=== PATIENT | male | born 1995 | race Caucasian/White ===

== ENCOUNTER 2019-11-13 11:38 | Emergency (ER) | payer BC, SELFPAY ==
[2019-11-13 11:48] VITALS: BP 135/87; PULSE 95; RESP 16; TEMP 36.8; O2SAT 100
--- NOTE | 2019-11-13 11:50 | ED.URI ---
HPI - URI/Sore Throat General Chief Complaint: Upper Respiratory Infection Stated Complaint: Sore throat Time Seen by Provider: 11/13/19 11:51 Source: patient and RN notes reviewed Mode of arrival: ambulatory Limitations: no limitations History of Present Illness HPI Narrative: This is a 24 years old male presented office for evaluation of possible sinus infection. Symptoms began 2 to 3 days ago with sinus congestion, sore throat and cough. His girlfriend has similar symptoms for 1 day which resolved prior to his symptoms. He smokes half a pack a day. Denies close contact with potential COVID people. He took cough drops this morning for his symptoms. Related Data Allergies Allergy/AdvReac Type Severity Reaction Status Date / Time No Known Allergies Allergy Unverified 04/12/13 18:40 Review of Systems Review of Systems: Narrative: CONSTITUTIONAL: Denies fever, chills ENT: Reports sinus congestion/headache, sore throat CARDIOVASCULAR: Denies chest pain RESPIRATORY: Denies dyspnea, wheezing. Reports coughing phelgm GASTROINTESTINAL: Denies abdominal pain, nausea, vomiting SKIN: Denies rash MUSCULOSKELETAL: Denies acute back pain NEUROLOGIC: Denies lightheaded All other systems reviewed are negative, except as documented in HPI. PMFSH Family History Family History Father Hypertension Family history of elevated blood lipids Family history of diabetes mellitus in first degree relative Family history of coronary artery disease Mother Hypertension Family history of elevated blood lipids Social History Social History Smoking status: Current every day smoker Second hand tobacco smoke exposure: No Alcohol intake: current Comments At time of signature, I agree with nursing past medical, surgical, social and family history. There is no relevant family history pertinent to the presenting complaint. Exam Narrative: Exam Narrative: GENERAL: This is a well-nourished, well-developed patient, in no apparent distress. EYES: Sclera clear/white. Vision is grossly intact. EARS: External ears normal, auditory canals clear and without drainage, TMs normal without perforation. Hearing grossly intact. NOSE: External nose normal with no obvious nasal discharge, nares without redness, no rhinorrhea. THROAT: Mucous membranes moist, posterior pharynx erythema with drainage NECK: Neck supple, non-tender without lymphadenopathy, masses or thyromegaly. CARDIOVASCULAR: Regular rate and rhythm without murmurs, gallops, or rubs. RESPIRATORY: Clear to auscultation. Breath sounds equal bilaterally. No wheezes, rales, or rhonchi. Frequent cough noted during examination. GASTROINTESTINAL: Abdomen soft, non-tender, nondistended. Bowel sounds are active. No hepato-splenomegaly, or palpable masses. No guarding. SKIN: warm, intact with no suspicious lesions or rash, good texture and turgor. NEURO: awake, alert, and oriented to person, place and time. There were no obvious focal neurologic abnormalities. Steady gait Jomar Coma Scale Eye Opening: Spontaneous 4 Jomar Coma Scale Motor: Obeys Commands 6 Jomar Coma Scale Verbal: Oriented 5 Course Vital Signs Vital signs: Vital Signs Temperature 98.2 F 11/13/19 11:48 Pulse Rate 95 11/13/19 11:48 Respiratory Rate 16 11/13/19 11:48 Blood Pressure 135/87 11/13/19 11:48 Pulse Oximetry 100 11/13/19 11:48 Temperature 98.2 F 11/13/19 11:48 Pulse Rate 95 11/13/19 11:48 Respiratory Rate 16 11/13/19 11:48 Blood Pressure 135/87 11/13/19 11:48 Pulse Oximetry 100 11/13/19 11:48 MDM - URI/Sore Throat MDM Narrative Medical decision making narrative: Discharge instructions reviewed with patient, as well as provided in writing per nursing staff. The instructions also include specific and strict return/GO TO THE ER as well as f/u information. All ques
== END 2019-11-13 12:10 | disposition home or self-care (01) ==
PROVIDERS: Emergency Provider Nurse Practitioner; PCP Family Medicine
DX: J06.9 Acute upper respiratory infection, unspecified (principal); Z20.828 Contact with and (suspected) exposure to other viral communicable diseases; F17.200 Nicotine dependence, unspecified, uncomplicated
CPT/HCPCS: 99213; G0463

== ENCOUNTER 2021-02-25 14:14 | Emergency (ER) | payer BC, SELFPAY ==
[2021-02-25 14:37] VITALS: BP 135/80; PULSE 82; RESP 16; TEMP 36.8; O2SAT 100
--- NOTE | 2021-02-25 15:37 | ED.NECK ---
HPI - Neck Pain/Injury General Chief Complaint: Neck Pain/Injury Stated Complaint: Neck and Shoulder Pain History of Present Illness HPI Narrative: This is a 25-year-old comes in complaining of right neck shooting pain with shoulder pain. Patient denies any falls or injury states that he has had this before but it went away now this time its not going away. Patient states that the pain is better when he puts his arm across his chest and does not move it painful with lifting his arm up and down Related Data Allergies Allergy/AdvReac Type Severity Reaction Status Date / Time No Known Allergies Allergy Verified 02/25/21 15:30 Review of Systems Review of Systems: Cervical pain and shoulder pain All symptoms reviewed and unremarkable except noted PMFSH Family History Family History Father Hypertension Family history of elevated blood lipids Family history of diabetes mellitus in first degree relative Family history of coronary artery disease Mother Hypertension Family history of elevated blood lipids Social History Social History Smoking status: Current every day smoker Second hand tobacco smoke exposure: No Alcohol intake: current Comments At time as signature, I have reviewed and agree with nursing past medical, social, surgical and family history. Please see nursing chart for further information. There is no relevant family history pertinent to the presenting complaint. Exam Narrative: GENERAL:Well-appearing, well-nourished, and in no acute distress. HEAD:Normocephalic, atraumatic. EYES: PERRLA ENT: Nares clear, CHEST: Clear to auscultation. No respiratory distress. HEART: Regular rate and rhythm. No murmur heard. Normal peripheral pulses. ABDOMEN: Soft, nontender, nondistended, normal active bowel sounds. EXTREMITIES: Decrease range of motion right shoulder pain from neck shooting down arm. No edema. SKIN: Warm, dry, no rash. NEURO: No focal deficits. Alert and oriented x3. Course Vital Signs Vital signs: Vital Signs Temperature 98.2 F 02/25/21 14:37 Pulse Rate 82 02/25/21 14:37 Respiratory Rate 16 02/25/21 14:37 Blood Pressure 135/80 02/25/21 14:37 Pulse Oximetry 100 02/25/21 14:37 Temperature 98.2 F 02/25/21 14:37 Pulse Rate 82 02/25/21 14:37 Respiratory Rate 16 02/25/21 14:37 Blood Pressure 135/80 02/25/21 14:37 Pulse Oximetry 100 02/25/21 14:37 MDM - Neck Pain/Injury Differential Diagnosis Differential diagnosis: Likely disc disorder of cervical region, whiplash injury to neck, fracture of cervical spine without lesion of spinal cord, cervical radiculopathy, torticollis and strain of neck muscle Discharge Plan Discharge Clinical Impression: Strain of neck muscle Qualifiers: Encounter type: initial encounter Qualified Code(s): S16.1XXA - Strain of muscle, fascia and tendon at neck level, initial encounter Pinched nerve in shoulder Qualifiers: Laterality: right Qualified Code(s): G56.81 - Other specified mononeuropathies of right upper limb Patient Disposition: Home, Self-Care Condition: Stable Instructions: Antibiotic Form, Cervical Strain (ED), Cervical Radiculopathy (ED) Additional Instructions: Avoid weight bearing until the pain subsides. Ice to the area 20-30 minutes 4-6 times a day Elevate above heart Elastic wrap or orthopedic splint as directed for comfort for the next 5-7 days Crutches as directed if needed Tylenol for lesser pain Ibuprofen regularly for the next 2-3 days for the inflammation Follow up with your primary care provider if the condition is not improving within 1 week or sooner if the condition worsens with numbness, tingling, decrease sensation with weakness to seek ER. Prescriptions: New prednisone 20 mg tablet 20 mg PO DAILY Qty: 5 RF: 0 cyclobenzaprine 5 mg tablet 5 mg PO TID PRN (
== END 2021-02-25 15:55 | disposition home or self-care (01) ==
PROVIDERS: Emergency Provider Nurse Practitioner Family; PCP Family Medicine
DX: S16.1XXA Strain of muscle, fascia and tendon at neck level, initial encounter (principal); X58.XXXA Exposure to other specified factors, initial encounter; G56.81 Other specified mononeuropathies of right upper limb; F17.200 Nicotine dependence, unspecified, uncomplicated
CPT/HCPCS: 99213; A4565; G0463

== ENCOUNTER 2022-05-16 10:11 | Emergency (ER) | payer BC, SELFPAY ==
--- NOTE | ~2022-05-16 | XR_ITS ---
Left foot Technique: AP, oblique, and lateral views were obtained. Clinical History: Pain Findings: There is a suspected tiny sliver-like avulsion fracture at the lateral aspect of the first proximal phalanx. Joint spaces are preserved without erosive or degenerative change. Soft tissues are unremarkable. Impression: Suspected sliver-like tiny avulsion fracture at the lateral aspect of the first proximal phalanx. Cor relate for point tenderness. Reviewed, dictated and finalized at location M. PUNCHER Impression: Suspected sliver-like tiny avulsion fracture at the lateral aspect of the first proximal phalanx. Correlate for point tenderness.
[2022-05-16 10:52] VITALS: BP 143/89; PULSE 90; RESP 18; TEMP 36.8; O2SAT 100
--- NOTE | 2022-05-16 10:57 | ED.LOWEXIN ---
HPI - Extremity Injury (Lower) General Chief Complaint: Extremity Injury, Lower Stated Complaint: Lt Foot Pain Time Seen by Provider: 05/16/22 11:06 Source: patient, RN notes reviewed and old records reviewed Mode of arrival: ambulatory Limitations: no limitations History of Present Illness HPI Narrative: 26-year-old male presents to the [facility] with left foot pain after dropping a frozen turkey on his foot yesterday. Patient states that tricky was in the freezer when it fell on his foot. Tenderness to the dorsal aspect proximal foot with significant bruising over the metatarsals. No pain or tenderness to the phalanx MD complaint: foot injury ( left foot pain) Onset (ago): day(s) (1) Related Data Home Medications Medication Instructions Recorded Confirmed No Home Medications 05/16/22 05/16/22 Allergies Allergy/AdvReac Type Severity Reaction Status Date / Time No Known Allergies Allergy Verified 05/16/22 11:09 Review of Systems Review of Systems: All systems reviewed & are unremarkable except as noted in HPI and below Constitutional: Constitutional: Reports no additional constitutional complaints Eyes: Eyes: Reports no additional eye complaints ENT: Reports system reviewed and no additional complaints, except as documented Cardiovascular: Cardiovascular: Reports no additional cardiovascular complaints, Denies chest pain and Denies dyspnea Respiratory: Respiratory: Reports no additional respiratory complaints, Denies chest congestion, Denies cough and Denies dyspnea Gastrointestinal: Gastrointestinal: Reports no additional gastrointestinal complaints, Denies abdominal pain, Denies nausea and Denies vomiting Musculoskeletal: Musculoskeletal: Reports as per HPI Integumentary/Breasts: Skin/Breast: Reports system reviewed and no additional complaints, except as docu Neurologic: Reports system reviewed and no additional complaints, except as documented Psychiatric: Psychiatric: Reports no additional psychiatric complaints Allergic/Immunologic: Allergic/Immunologic: Reports no additional allergic/immunologic complaints [facility] Past Medical History Medical History Fracture of fifth metacarpal bone of right hand Family History Family History Father Hypertension Family history of elevated blood lipids Family history of diabetes mellitus in first degree relative Family history of coronary artery disease Suicide and self-inflicted injury by firearm Mother Hypertension Family history of elevated blood lipids Sarcoidosis Social History Social History (Reviewed 05/16/22 @ 19:41 by JUDAH Mauro Social History: Single Smoking status: Never smoker Second hand tobacco smoke exposure: No Alcohol intake: current Drinks per week: 10 Substance use: never Substance use type: does not use Living arrangements: with family Occupation/Education: occupation Gender identity (if verbalized by the patient): Male Sexual Orientation (if Verbalized by the Patient): Straight or Heterosexual Comments At the time of my signature, I reviewed and agree with the nursing past medical, surgical, social, and family history. There is no relevant family history pertinent to the patient complaint. Exam Const: General: cooperative, healthy appearing, comfortable, no acute distress, well developed, alert and well nourished Nutritional Appearance: well nourished Orientation/consciousness: patient oriented x3 Limitations: no limitations HENMT: Head: normal to inspection Ears: hearing grossly normal bilaterally and external ears normal Face/Nose/Sinus: Normal external nose present, Normal nares present, Normal nasal mucous membranes and turbinates present and normal facial exam Face and sinus: normal facial exam Mouth: Yes Normal oral and palatal mucosa present, Yes lip normal and Yes
== END 2022-05-16 11:30 | disposition home or self-care (01) ==
PROVIDERS: Emergency Provider Nurse Practitioner; PCP Family Medicine
DX: S90.32XA Contusion of left foot, initial encounter (principal); W20.8XXA Other cause of strike by thrown, projected or falling object, initial encounter
CPT/HCPCS: 73630; 99213; G0463

== ENCOUNTER 2023-08-12 14:19 | Outpatient (CLI) | payer BC, SELFPAY ==
[2023-08-12 15:06] LABS: Alanine Aminotransferase 71 U/L (6-50); Albumin Level 4.8 g/dL (3.5-5.1); Alkaline Phosphatase 65 U/L (38-126); Anion Gap 6 mmol/L (4-12); Aspartate Amino Transferase 40 U/L (17-59); Bilirubin,Total 0.7 mg/dL (0.2-1.3); Blood Urea Nitrogen 14 mg/dL (9-20); Calcium 9.6 mg/dL (8.4-10.2); Carbon Dioxide 27 mmol/L (22-30); Chloride 104 mmol/L (98-107); Estimated Glomerular Filt Rate > 60; Glucose 93 mg/dL (65-110); Potassium 4.2 mmol/L (3.4-5.0); Sodium 137 mmol/L (137-145)
== END 2023-08-12 14:20 | disposition home or self-care (01) ==
LOC: ANHLAB 14:20
PROVIDERS: PCP Family Medicine; Visit Provider Physician Assistant
DX: R74.8 Abnormal levels of other serum enzymes (principal)
CPT/HCPCS: 36415; 80053

== ENCOUNTER 2024-05-16 11:58 | Outpatient (CLI) | payer BC, SELFPAY ==
--- NOTE | ~2024-05-16 | XR_ITS ---
EXAMINATION: XR thoracic spine 2V DATE: 05/16/2024 12:17 INDICATION: Pain in thoracic spine. TECHNIQUE: 3 views of thoracic spine on 5 radiographs were obtained. COMPARISON: None. FINDINGS: There is 5 degrees dextrocurvature of the upper thoracic spine. Vertebral body heights are normal. There are endplate osteophytes at multiple levels. There is mildly decreased disc height at m ultiple levels in upper thoracic spine. IMPRESSION: 1. Mild thoracic spondylosis. Reviewed, dictated and finalized at location B. ALLER SOFT TOP
== END 2024-05-16 11:59 | disposition home or self-care (01) ==
PROVIDERS: PCP Family Medicine; Visit Provider Student in an Organized Health Care Education/Training Program
DX: M47.814 Spondylosis without myelopathy or radiculopathy, thoracic region (principal)
CPT/HCPCS: 72070